=== PATIENT | female | born 1990 | race Caucasian/White ===

== ENCOUNTER 2021-01-11 21:33 | Emergency (ER) | payer MEDICAID ==
--- NOTE | 2021-01-11 22:11 | EDM.PDOC ---
ED HPI GENERAL MEDICAL PROBLEM - General Chief Complaint: Cardiovascular Problem Stated Complaint: FAST HEART RATE Time Seen by Provider: 01/11/21 23:00 Source of Information: Reports: Patient History Limitations: Reports: No Limitations - History of Present Illness INITIAL COMMENTS - FREE TEXT/NARRATIVE: 22-year-old female no past medical history presents for episode of rapid heart rate. Patient states that she was at rest eating dinner when she got a notification from her apple watch that her heart rate was in the 130s. This lasted for about an hour and then went away. She notes that the heart rate was varying from high 90s to 130s during this episode. She notes that she had a similar episode several months ago but has not followed up with a physician for it. She denies any history of blood clots, lower extremity swelling or pain. She denies any associated chest pain or difficulty breathing during this episode or now. She states that she could feel her heart beating fast during this episode. - Related Data Allergies Allergy/AdvReac Type Severity Reaction Status Date / Time Penicillins Allergy Difficulty Verified 01/12/21 00:24 Breathing Sulfa (Sulfonamide Allergy Rash Verified 01/12/21 00:24 Antibiotics) Home Meds: Home Meds Etonogestrel [Nexplanon] 68 mg IMPLANT ASDIRECTED 01/12/21 [History] ED ROS GENERAL - Review of Systems Review Of Systems: Comprehensive ROS is negative, except as noted in HPI. ED EXAM, GENERAL - Physical Exam Exam: See Below Exam Limited By: No Limitations General Appearance: Alert, WD/WN, No Apparent Distress Ears: Hearing Grossly Normal Throat/Mouth: Normal Voice, No Airway Compromise Head: Atraumatic, Normocephalic Respiratory/Chest: No Respiratory Distress, Lungs Clear, Normal Breath Sounds, No Accessory Muscle Use Cardiovascular: Normal Peripheral Pulses, Regular Rate, Rhythm, No Edema Extremities: Normal Inspection Neurological: Alert, Normal Cognition, Normal Gait Psychiatric: Normal Affect, Normal Mood Skin Exam: Warm, Dry, Intact, Normal Color #1 Interpretation EKG Date: 01/11/21 Time: 21:45 Rhythm: NSR Rate (Beats/Min): 95 [place]: Normal P-Wave: Present QRS: Normal ST-T: Normal QT: Normal NE/PQ Interval: 111 Comparison: NA - No Prior EKG EKG Interpretation Comments: normal EKG Course - Vital Signs Last Recorded V/S: Last Vital Signs Temp 97.3 F 01/12/21 00:11 Pulse 92 01/12/21 01:40 Resp 18 01/12/21 01:40 BP 134/84 01/12/21 01:40 Pulse Ox 98 01/12/21 01:40 - Orders/Labs/Meds Labs: Laboratory Tests 01/12/21 01/12/21 Range/Units 00:50 00:50 WBC 9.73 (4.0-11.0) K/uL RBC 4.90 (4.30-5.90) M/uL Hgb 14.7 (12.0-16.0) g/dL Hct 41.9 (36.0-46.0) % MCV 85.5 (80.0-98.0) fL MCH 30.0 (27.0-32.0) pg MCHC 35.1 (31.0-37.0) g/dL RDW Std Deviation 41.1 (28.0-62.0) fl RDW Coeff of Garima 13 (11.0-15.0) % Plt Count 429 H (150-400) K/uL MPV 9.30 (7.40-12.00) fL Neut % (Auto) 49.6 (48.0-80.0) % Lymph % (Auto) 40.3 H (16.0-40.0) % Carver % (Auto) 8.2 (0.0-15.0) % Eos % (Auto) 1.5 (0.0-7.0) % Baso % (Auto) 0.4 (0.0-1.5) % Neut # (Auto) 4.8 (1.4-5.7) K/uL Lymph # (Auto) 3.9 H (0.6-2.4) K/uL Carver # (Auto) 0.8 (0.0-0.8) K/uL Eos # (Auto) 0.2 (0.0-0.7) K/uL Baso # (Auto) 0.0 (0.0-0.1) K/uL Nucleated RBC % 0.0 /100WBC Nucleated RBCs # 0 K/uL Sodium 141 (136-145) mmol/L Potassium 3.4 L (3.5-5.1) mmol/L Chloride 102 (98-107) mmol/L Carbon Dioxide 28.1 (21.0-32.0) mmol/L BUN 11 (7.0-18.0) mg/dL Creatinine 0.9 (0.6-1.0) mg/dL Est Cr Clr Drug Dosing 80.36 mL/min Estimated GFR (MDRD) > 60.0 ml/min Glucose 93 (74-106) mg/dL Calcium 8.7 (8.5-10.1) mg/dL Total Bilirubin 0.5 (0.2-1.0) mg/dL AST 13 L (15-37) IU/L ALT 20 (14-63) IU/L Alkaline Phosphatase 58 (46-116) U/L Troponin I < 0.050 (0.000-0.056) ng/mL Total Protein 8.1 (6.4-8.2) g/dL Albumin 4.0 (3.4-5.0) g/dL Globulin 4.1 H (2.6-4.0) g/dL Albumin/Globulin Ratio 1.0 (0.9-1.6) TSH, Ultra Sensitive 3.74 (0.36-3.74) uIU/mL - Re-Assessments/Exams Free Text/Narrative Re-Assessment/Exam: 01/12/21 00:38 We will get basic labs including troponin, TSH, electrolytes. If unremarkable anticipate discharge with prescription for Zio patch. 01/12/21 01:25 Labs and chest x-ray are unremarkable. Will discharge with prescription for Zio patch and recommend cardiology follow-up. Patient was placed on cardiology follow-up list. Departure - Departure Time of Disposition: 01:25 Disposition: Home, Self-Care 01 Condition: Good Clinical Impression: Tachycardia Referrals: PCP,None [Primary Care Provider] - Forms: ED Department Discharge Additional Instructions: Your labs including cardiac enzymes, thyroid hormone level, electrolytes were all within normal limits. I did give you a prescription for a Zio patch which is like a Holter monitor. You can pick this up tomorrow. I would also rec ommend following up with a registered nurse behavioral health to discuss the results of the Zio patch. I did place you on our cardiology follow-up list. [facility] [address] [place] [id number] The following information is given to patients seen in the emergency department who are being discharged to home. This information is to outline your options for follow-up care. We provide all patients seen in our emergency department with a follow-up referral. The need for follow-up, as well as the timing and circumstances, are variable depending upon the specifics of your emergency department visit. If you don't have a primary care physician on staff, we will provide you with a referral. We always advise you to contact your personal physician following an emergency department visit to inform them of the circumstance of the visit and for follow-up with them and/or the need for any referrals to a consulting specialist. The emergency department will also refer you to a specialist when appropriate. This referral assures that you have the opportunity for follow-up care with a specialist. All of these measure are taken in an effort to provide you with optimal care, which includes your follow-up. Under all circumstances we always encourage you to contact your private physician who remains a resource for coordinating your care. When calling for follow-up care, please make the office aware that this follow-up is from your recent emergency room visit. If for any reason you are refused follow-up, please contact the [facility] Emergency Department at and asked to speak to the emergency department charge nurse. Please follow up with your primary care physician. If you do not have a primary care physician, see below: [facility] [address] [place] [id number] [facility] [address] [place] [address] [facility] [address] [place] [id number] Sepsis Event Note (ED) - Focused Exam Vital Signs: Vital Signs Temp Pulse Resp BP Pulse Ox 01/12/21 01:40 92 18 134/84 98 01/12/21 00:11 97.3 F 92 16 149/98 H 98
[2021-01-12 01:20] LABS: BLOOD UREA NITROGEN,BUN 11 mg/dL (7.0-18.0); CARBON DIOXIDE,CO2 28.1 mmol/L (21.0-32.0); CHLORIDE,CL 102 mmol/L (98-107); GLUCOSE RANDOM 93 mg/dL (74-106); POTASSIUM,K 3.4 mmol/L (3.5-5.1); SODIUM,NA 141 mmol/L (136-145)
--- NOTE | 2021-01-12 01:38 | CR ---
Indication: Chest pain Technique: Chest 1 view Comparison: None Findings/Impression: Cardiovascular and mediastinum: Heart size and vasculature are normal in caliber and appearance. Mediastinum is within normal limits. Lungs and pleural space: Lungs are clear. No sign of infiltrate or mass. No sign of pleural effusion. No pneumothorax. Bones and soft tissues: No significant findings. Dictated by Georgette Lind MD @ 01/12/2021 1:36:38 AM (Electronically Signed)
== END 2021-01-12 01:40 | disposition home or self-care (01) ==
LOC: MW.ED 21:33
DX: R00.0 Tachycardia, unspecified (principal); Z88.0 Allergy status to penicillin; Z88.2 Allergy status to sulfonamides
CPT/HCPCS: 36415; 71045; 71045-26; 80053; 84443; 84484; 85025; 93005; 99285-25

== ENCOUNTER 2021-09-01 12:39 | Emergency (ER) | payer BC, MEDICAID ==
[2021-09-01] MEDS ORDERED: Ondansetron 4 MG/2 ML SDV IVPUSH ONE (16:12)
[2021-09-01 17:05] LABS: POTASSIUM,K 3.5 mmol/L (3.5-5.1)
[2021-09-01] MEDS ORDERED: Iopamidol 755 MG/ML 500 ML Multipack Bottle IVPUSH STA (17:12)
== END 2021-09-01 18:35 | disposition home or self-care (01) ==
LOC: MW.ED 12:39
DX: H53.8 Other visual disturbances (principal); M54.2 Cervicalgia; Z88.0 Allergy status to penicillin; Z88.2 Allergy status to sulfonamides; Z86.16 Personal history of COVID-19
CPT/HCPCS: 36415; 70496; 70498; 80053; 81025; 85025; 85610; 96374; 99284; J2405; Q9967

== ENCOUNTER 2024-04-08 20:36 | Observation (INO) | payer BC, MEDICAID ==
[2024-04-08 21:44] LABS: BASOPHILS ABSOLUTE AUTO 0.06 K/uL (0.00-0.20); BASOPHILS PERCENT AUTO 0.5 % (0.0-1.0); EOSINOPHILS ABSOLUTE AUTO 0.16 K/uL (0.00-0.45); EOSINOPHILS PERCENT AUTO 1.4 % (0.0-6.0); HEMOGLOBIN 12.4 g/dL (12.0-16.0); IMMATURE GRAN ABSOLUTE AUTO 0.19 K/uL (0.00-0.05); IMMATURE GRAN PERCENT AUTO 1.7 % (0.0-0.4); LYMPHOCYTES ABSOLUTE AUTO 3.06 K/uL (1.00-4.80); LYMPHOCYTES PERCENT AUTO 26.8 % (24.0-44.0); MEAN CORPUSCULAR HGB CONC 34.4 g/dL (32.0-36.0); MEAN PLATELET VOLUME 9.6 fL (9.4-12.3); MONOCYTES ABSOLUTE AUTO 0.71 K/uL (0.00-0.80); MONOCYTES PERCENT AUTO 6.2 % (0.0-8.0); NEUTROPHILS ABSOLUTE AUTO 7.25 K/uL (1.80-7.70); NEUTROPHILS PERCENT AUTO 63.4 % (41.0-71.0); PLATELET COUNT,PLT 329 K/uL (150-400); RED BLOOD CELL COUNT 4.14 M/uL (4.10-5.30); WHITE BLOOD CELL COUNT,WBC 11.43 K/uL (3.9-11.3)
[2024-04-08] MEDS ORDERED: Sodium Chloride 0.9% 10 ML Syringe FLUSH PRN (21:55)
[2024-04-08] MEDS ORDERED: Sodium Chloride 0.9% 2.5 ML Syringe FLUSH PRN (21:55)
[2024-04-08] MEDS ORDERED: Sodium Chloride 0.9% 20 ML SDV IV PRN (21:55)
[2024-04-08] MEDS ORDERED: Water For Irrigation,Sterile 1,000 ML Container IRR PRN (21:55)
[2024-04-08] MEDS ORDERED: Lactated Ringers 1,000 ML IV SCH (22:00)
[2024-04-08] MEDS ORDERED: NIFEdipine 30 MG Tab.ER PO SCH (22:00)
[2024-04-08 22:06] LABS: CREATININE,URINE RAND 21.5 mg/dL
[2024-04-08 22:10] LABS: A/G RATIO 0.8 (0.9-1.6); ALBUMIN 3.1 g/dL (3.4-5.0); BILIRUBIN TOTAL 0.4 mg/dL (0.2-1.0); CALCIUM 8.8 mg/dL (8.5-10.1); CARBON DIOXIDE,CO2 23.5 mmol/L (21.0-32.0); CREATININE 0.6 mg/dL (0.6-1.0); EST CRCL DRUG DOSING (CG) 117.31 mL/min; POTASSIUM,K 3.6 mmol/L (3.5-5.1); PROTEIN TOTAL,TP 6.8 g/dL (6.4-8.2); PROTEIN,URINE RANDOM < 6.0 mg/dL (<11.9)
[2024-04-08] MEDS: NIFEdipine 30 MG Tab.ER PO SCH (23:10)
== END 2024-04-09 10:14 | disposition home or self-care (01) ==
LOC: MW.OBCHECK 20:36 → MW.OB 21:10
PROVIDERS: ADMIT Obstetrics & Gynecology; ATTEND Obstetrics & Gynecology
DX: O10.912 Unspecified pre-existing hypertension complicating pregnancy, second trimester (principal); Z3A.23 23 weeks gestation of pregnancy; Z79.82 Long term (current) use of aspirin; Z88.0 Allergy status to penicillin; Z88.2 Allergy status to sulfonamides; Z79.899 Other long term (current) drug therapy
CPT/HCPCS: 36415; 59025; 76815; 80053; 82570; 84156; 85025; A9270; 99221; 99238

== ENCOUNTER 2024-07-18 00:05 | Inpatient (IN) | payer BC ==
[2024-07-18] MEDS ORDERED: Carboprost Tromethamine 250 MCG/1 mL Vial IM PRN (00:10)
[2024-07-18] MEDS ORDERED: Water For Irrigation,Sterile 1,000 ML Container IRR PRN (00:10)
[2024-07-18] MEDS ORDERED: Methylergonovine 0.2 MG/1 ML Amp IM PRN (00:10)
[2024-07-18] MEDS ORDERED: Terbutaline 1 MG/ML SDV SUBCUT PRN (00:10)
[2024-07-18] MEDS ORDERED: Sodium Chloride 0.9% 2.5 ML Syringe FLUSH PRN (00:10)
[2024-07-18] MEDS ORDERED: Lidocaine 1% 50 ML MDV INJECT PRN (00:10)
[2024-07-18] MEDS ORDERED: Butorphanol 1 MG/ML SDV IVPUSH PRN (00:10)
[2024-07-18] MEDS ORDERED: Ondansetron 4 MG/2 ML SDV IVPUSH PRN (00:10)
[2024-07-18] MEDS ORDERED: Misoprostol 200 MCG Tab PO PRN (00:10)
[2024-07-18] MEDS ORDERED: Sodium Chloride 0.9% 20 ML SDV IV PRN (00:10)
[2024-07-18] MEDS ORDERED: Sodium Chloride 0.9% 10 ML Syringe FLUSH PRN (00:10)
[2024-07-18] MEDS ORDERED: Oxytocin/0.9 % Sodium Chloride 30 UNIT/500 ML BAG IV SCH (00:15)
[2024-07-18] MEDS: Lactated Ringers 1,000 ML IV SCH (01:07)
[2024-07-18] MEDS: VANCOmycin 1.75 GM/350 ML 1.75 GM in Premix Bag 1 BAG IV SCH (01:09)
[2024-07-18 01:19] LABS: HEMATOCRIT 35.9 % (37.0-47.0); HEMOGLOBIN 12.3 g/dL (12.0-16.0); MEAN CORPUSCULAR HEMOGLOBIN 29.1 pg (28.0-32.0); MEAN CORPUSCULAR HGB CONC 34.3 g/dL (32.0-36.0); MEAN CORPUSCULAR VOLUME 84.9 fL (83.0-99.0); MEAN PLATELET VOLUME 9.9 fL (9.4-12.3); PLATELET COUNT,PLT 315 K/uL (150-400); RED BLOOD CELL COUNT 4.23 M/uL (4.10-5.30); WHITE BLOOD CELL COUNT,WBC 10.78 K/uL (3.9-11.3)
[2024-07-18] MEDS: Misoprostol 25 MCG (1/4 of 100 MCG) Tab VAG PRN ×2 (01:40→11:25)
[2024-07-18] MEDS ORDERED: Tranexamic Acid in NACL,ISO-OS 1,000 MG in Premix Bag 1 BAG IV PRN (04:11)
[2024-07-18] MEDS: Oxytocin/0.9 % Sodium Chloride 30 UNIT/500 ML BAG IV SCH (06:32)
[2024-07-18] MEDS: NIFEdipine 30 MG Tab.ER PO SCH (08:44)
[2024-07-19] MEDS ORDERED: dexmedeTOMIDine HCl 200 MCG/2 ML SDV ONE (04:42)
[2024-07-19] MEDS ORDERED: Phenylephrine HCl In 0.9% NaCl 1 MG/10 ML Syringe ONE (04:42)
[2024-07-19] MEDS ORDERED: Ropivacaine HCl/PF 200 ML ONE (04:42)
[2024-07-19] MEDS ORDERED: Bupivacaine 0.5% 10 ML SDV ONE (04:42)
[2024-07-19] MEDS: Ropivacaine HCl/PF 400 MG in Premix Bag 1 BAG EPIDUR SCH (04:59)
[2024-07-19] MEDS ORDERED: ePHEDrine 50 MG/ML SDV IVPUSH PRN (05:28)
[2024-07-19] MEDS ORDERED: Phenylephrine HCl In 0.9% NaCl 1 MG/10 ML Syringe IVPUSH PRN (05:28)
[2024-07-19] MEDS ORDERED: dexmedeTOMIDine HCl 200 MCG/2 ML SDV EPIDUR SCH (05:30)
[2024-07-19] MEDS ORDERED: Ibuprofen 800 MG Tab PO PRN (10:12)
[2024-07-19] MEDS: Acetaminophen 500 MG Tab PO PRN (11:00)
[2024-07-19] MEDS: Benzocaine/Menthol 20%-0.5% Spray 78 GM Cannister TOP PRN (11:00)
[2024-07-19] MEDS: Witch Hazel Medicated Pads 40/Jar TOP PRN (11:00)
[2024-07-19] MEDS: Lanolin 100% Cream 7 GM Tube TOP PRN (11:01)
[2024-07-19] MEDS: Docusate Sodium 100 MG Cap PO PRN (11:01)
[2024-07-19] MEDS: Measles, Mumps & Rubella Vaccine 0.5 ML SDV SUBCUT ONE (15:32)
[2024-07-19] MEDS ORDERED: Measles, Mumps & Rubella Vaccine 0.5 ML SDV SUBCUT ONE (15:39)
== END 2024-07-19 19:00 | disposition home or self-care (01) | DRG 560 ==
LOC: MW.OB 00:05 → OBSVTOIN 07-19 07:26 → MW.OB 07-19 12:10
PROVIDERS: ADMIT Obstetrics & Gynecology; ATTEND Obstetrics & Gynecology
PROC: 10E0XZZ Delivery of Products of Conception, External Approach (ICD-10-PCS; principal; 2024-07-19)
PROC: 3E0234Z Introduction of Serum, Toxoid and Vaccine into Muscle, Percutaneous Approach (ICD-10-PCS; 2024-07-19)
PROC: 3E0R3BZ Introduction of Anesthetic Agent into Spinal Canal, Percutaneous Approach (ICD-10-PCS; 2024-07-19)
DX: O10.92 Unspecified pre-existing hypertension complicating childbirth (principal); O99.824 Streptococcus B carrier state complicating childbirth; O99.214 Obesity complicating childbirth; Z3A.38 38 weeks gestation of pregnancy; Z37.0 Single live birth; Z23 Encounter for immunization; Z88.0 Allergy status to penicillin; Z79.82 Long term (current) use of aspirin; Z79.899 Other long term (current) drug therapy
CPT/HCPCS: 36415; 51702; 59025; 59409; 85027; 86592; 86850; 86900; 86901; 90707; A9270-GY; J0665; J2371; J2590; J2795; J3372; J7120